=== PATIENT | male | born 1955 | race Caucasian/White ===

== ENCOUNTER 2021-07-15 10:35 | Emergency (ER) | payer BC ==
[~2021-07-15] VITALS: Ht 172.7 cm; Wt 88.5 kg
[2021-07-15] MEDS ORDERED: CLIN-141 PO ×2 (12:45→12:49)
[2021-07-15] MEDS ORDERED: LIDOCAINE HCL 1% 20 ML VIAL INJ SCH (13:00)
[2021-07-15] MEDS ORDERED: TETANUS/DIPHTHERIA TOXOID [ADULT] 0.5 ML VIAL IM ONE (13:00)
[2021-07-15 13:07] VITALS: BP 136/84
== END 2021-07-15 13:11 | disposition home or self-care (01) ==
LOC: EDH 10:35
DX: L02.212 Cutaneous abscess of back [any part, except buttock and flank] (principal); L72.9 Follicular cyst of the skin and subcutaneous tissue, unspecified; Z90.89 Acquired absence of other organs
CPT/HCPCS: 10060; 87070; 87076; 90471; 90714